=== PATIENT | male | born 1985 | race Caucasian/White ===

== ENCOUNTER 2016-09-05 16:40 | Emergency (ER) | payer OTHER ==
[2016-09-05 16:50] VITALS: RESP 18
--- NOTE | 2016-09-05 17:10 | CPEKG ---
Heart Rate: 65 RR Interval: 923 P-R Interval: 180 QRSD Interval: 92 QT Interval: 420 QTC Interval: 437 P [place]: 53 QRS [place]: 80 T Wave [place]: 34 EKG Severity - NORMAL ECG - EKG Impression: SINUS RHYTHM Electronically Signed By: Juwan Whittington 05-Sep-2016 19:34:08
--- NOTE | 2016-09-05 17:29 | EDPHY ---
H & P Stated Complaint: chest tightness intermittent for last 4 weeks/anxiety Time Seen by Provider: 09/05/16 17:05 HPI/ROS: CHIEF COMPLAINT: Chest pain, palpitations, anxiety HISTORY OF PRESENT ILLNESS: The patient presents to the ED with complaints of chest pain, palpitations and anxiety for the past 5 weeks. The patient reports he is under fair amount of stress secondary to marital problems. The patient has no history of exertional chest pain or shortness of breath. In fact the patient states exercise tends to make him feel better. The patient currently is asymptomatic. He denies chest pain, pleuritic chest pain, asymmetric calf pain or swelling or additional complaints. The patient has no risk factors for coronary artery disease. REVIEW OF SYSTEMS: A comprehensive 10 point review of systems is otherwise negative aside from elements mentioned in the history of present illness. Source: Patient Exam Limitations: No limitations - Personal History Current Tetanus/Diphtheria Vaccine: Unsure - Medical/Surgical History Hx Asthma: No Hx Chronic Respiratory Disease: No Hx Diabetes: No Hx Cardiac Disease: No Hx Renal Disease: No Hx Cirrhosis: No Hx Alcoholism: No Hx HIV/AIDS: No Hx Splenectomy or Spleen Trauma: No Other PMH: l shoulder dislocation - Social History Smoking Status: Never smoked - Physical Exam Exam: General Appearance: Alert, no distress Eyes: Pupils equal and round no pallor or injection ENT, Mouth: Mucous membranes moist Respiratory: There are no retractions, lungs are clear to auscultation Cardiovascular: Regular rate and rhythm Gastrointestinal: Abdomen is soft and nontender, no masses, bowel sounds normal Neurological: A&O, normal motor function, normal sensory exam, normal cranial nerves Skin: Warm and dry, no rashes Musculoskeletal: Neck is supple nontender Extremities: symmetrical, full range of motion Constitutional: Initial Vital Signs Temperature (C) 36.6 C 09/05/16 16:47 Heart Rate 62 09/05/16 16:47 Respiratory Rate 18 09/05/16 16:47 Blood Pressure 138/89 H 09/05/16 16:47 O2 Sat (%) 95 09/05/16 16:47 O2 Delivery Mode Room Air Allergies/Adverse Reactions: No Known Allergies Allergy (Verified 09/05/16 16:47) Home Medications: Medication Instructions Recorded Propranolol HCl [Inderal 10mg (*)] 10 mg PO TID PRN #30 tab 09/05/16 Medical Decision Making - Diagnostics EKG Interpretation: EKG: Complete interpretation has been separately recorded in the [facility] archive. Summary impression: Sinus rhythm, no ischemic changes noted ED Course/Re-evaluation: The patient presents to the ED with 5 weeks of intermittent chest pain and shortness of breath secondary to marital problems. The patient's EKG is normal. His troponin is negative. He has no risk factors for cardiac disease. The patient was asymptomatic in the ED. I have told the patient that I feel he is low risk for ACS. He exercises frequently which he states makes him feel better. I did would like to offer the patient a prescription for propranolol to see if that helps his symptoms of situational anxiety. Patient is comfortable being discharged home. He does understand to return to the ED for chest pain that is changing in character specifically becoming exertional or should his symptoms worsen. The patient will follow up with a primary care provider at the [facility]. He has been referred to our on-call textile screen maker for a follow-up visit for any ongoing symptoms. Differential Diagnosis: Differential diagnosis considered includes acute coronary syndrome, pericarditis , anxiety, situational depression, arrhythmia, thyrotoxicosis - Data Points Laboratory Results: Laboratory Results 09/05/16 17:15 09/05/16 17:15 09/05/16 09/05/16 17:15 17:15 WBC 9.71 10^3/uL H 10^3/uL (3.80-9.50) RBC 5.03 10^6/uL 10^6/uL (4.40-6.38) Hgb 16.2 g/dL g/dL (13.7-17.5) Hct 45.8 % % (40.0-51.0) MCV 91.1 fL fL (81.5-99.8) MCH 32.2 pg pg (27.9-34.1) MCHC 35.4 g/dL g/dL (32.4-36.7) RDW 11.9 % % (11.5-15.2) Plt Count 179 10^3/uL 10^3/uL (150-400) MPV 11.5 fL fL (8.7-11.7) Neut % (Auto) 68.5 % % (39.3-74.2) Lymph % (Auto) 22.7 % % (15.0-45.0) [place] % (Auto) 7.1 % % (4.5-13.0) Eos % (Auto) 1.2 % % (0.6-7.6) Baso % (Auto) 0.3 % % (0.3-1.7) Nucleat RBC Rel Count 0.0 % % (0.0-0.2) Absolute Neuts (auto) 6.65 10^3/uL H 10^3/uL (1.70-6.50) Absolute Lymphs (auto) 2.20 10^3/uL 10^3/uL (1.00-3.00) Absolute Monos (auto) 0.69 10^3/uL 10^3/uL (0.30-0.80) Absolute Eos (auto) 0.12 10^3/uL 10^3/uL (0.03-0.40) Absolute Basos (auto) 0.03 10^3/uL 10^3/uL (0.02-0.10) Absolute Nucleated RBC 0.00 10^3/uL 10^3/uL (0-0.01) Immature Gran % 0.2 % % (0.0-1.1) Immature Gran # 0.02 10^3/uL 10^3/uL (0.00-0.10) Sodium 139 mEq/L mEq/L (134-144) Potassium 3.8 mEq/L mEq/L (3.5-5.2) Chloride 103 mEq/L mEq/L (97-110) Carbon Dioxide 23 mEq/l mEq/l (22-31) Anion Gap 13 mEq/L mEq/L (8-16) BUN 13 mg/dL mg/dL (7-23) Creatinine 1.0 mg/dL mg/dL (0.7-1.3) Estimated GFR > 60 Glucose 88 mg/dL mg/dL (70-100) Calcium 10.0 mg/dL mg/dL (8.5-10.4) Troponin I < 0.012 ng/mL ng/mL (0-0.034) TSH 2.860 uIU/mL uIU/mL (0.465-4.680) Departure - Departure Disposition: Home, Routine, Self-Care Clinical Impression: Chest pain, Anxiety Condition: Good Instructions: Chest Pain (ED) Additional Instructions: 1. All testing done in the emergency department today demonstrates no evidence of a heart attack or other significant cardiac problem. 2. I do believe your chest pain is likely secondary to the stress your experiencing. I have provided you a prescription for propranolol which can help with symptoms of anxiety. 3. Please schedule a follow-up appointment with the textile screen maker you have been referred for ongoing symptoms. 4. Please return to the ED for markedly worsening symptoms or other concerns. 5. Please contact the [facility] at a [place] to schedule a follow-up visit. Referrals: Karsten Roe MD [Medical Doctor] - As per Instructions Prescriptions: Propranolol HCl [Inderal 10mg (*)] 10 mg PO TID PRN #30 tab PRN Reason: for anxiety
[2016-09-05 17:32] LABS: % IMMATURE GRANULYOCYTES 0.2 % (0.0-1.1); ABSOLUTE IMMATURE GRANULOCYTES 0.02 10^3/uL (0.00-0.10); ADD DIFF? NO; ADD MORPH? NO; ADD SCAN? NO; ATYPICAL LYMPHOCYTE FLAG 0 (0-99); FRAGMENT RBC FLAG 0 (0-99); HEMATOCRIT 45.8 % (40.0-51.0); HEMOGLOBIN 16.2 g/dL (13.7-17.5); LEFT SHIFT FLG 0 (0-99); LIPEMIA HEMOLYSIS FLAG 90 (0-99); MEAN CELL HEMOGLOBIN 32.2 pg (27.9-34.1); MEAN CELL HEMOGLOBIN CONCENTR. 35.4 g/dL (32.4-36.7); MEAN CELL VOLUME 91.1 fL (81.5-99.8); MEAN PLATELET VOLUME 11.5 fL (8.7-11.7); PLATELET CLUMPS FLAG 10 (0-99); PLATELET COUNT 179 10^3/uL (150-400); RED BLOOD CELL COUNT 5.03 10^6/uL (4.40-6.38); RED CELL DISTRIBUTION WIDTH 11.9 % (11.5-15.2)
[2016-09-05 17:49] LABS: ANION GAP 13 mEq/L (8-16); CARBON DIOXIDE 23 mEq/l (22-31); CHLORIDE 103 mEq/L (97-110); GLOMERULAR FILTRATION RATE > 60; GLUCOSE 88 mg/dL (70-100); POTASSIUM 3.8 mEq/L (3.5-5.2); SODIUM 139 mEq/L (134-144)
[2016-09-05 17:59] LABS: TROPONIN I < 0.012 ng/mL (0-0.034)
[2016-09-05 18:29] VITALS: BP 129/77; PULSE 65; TEMP 98.1; O2SAT 94
== END 2016-09-05 18:31 | disposition home or self-care (01) ==
DX: F41.9 Anxiety disorder, unspecified (principal)